=== PATIENT | female | born 1945 | race African-American/Black ===

== ENCOUNTER 2022-07-19 15:36 | Inpatient (IN) | payer MEDICARE, MEDICAID ==
[~2022-07-19] VITALS: Ht 162.6 cm; Wt 69.9 kg
[~2022-07-19 15:36] MED LIST: ALBU18HF2 IH; FLUT1DIS3 INH; LEVO-65 MT; P20 MT
[2022-07-19] MEDS ORDERED: ONDANSETRON HCL 4MG/2ML INJ IV STA (17:53)
[2022-07-19] MEDS ORDERED: MORPHINE SULFATE 4 MG/ML CPJ (NOT FOR IM USE) IV STA (17:53)
[2022-07-19] MEDS ORDERED: FUROSEMIDE 40MG/4ML VIAL IV ONE (18:00)
[2022-07-19 20:14] LABS: BASOPHILS % 0.4 % (0.0-2.0); EOSINOPHILS % 2.9 % (0.0-5.0); HEMATOCRIT. 32.6 % (36.0-48.0); HEMOGLOBIN. 10.4 g/dL (12.0-16.0); LYMPHOCYTES % 12.4 % (20.0-50.0); MEAN CORPUSCULAR HEMOGLOBIN 26.1 pg (28.0-32.0); MEAN CORPUSCULAR VOLUME 81.7 fL (81.0-99.0); MEAN PLATELET VOLUME 9.2 fl (7.4-10.4); MONOCYTES % 9.7 % (2.0-8.0); NEUTROPHILS % 74.6 % (40.0-76.0); PLATELET 270 x1000/uL (130-400); RED BLOOD CELL COUNT 3.99 mill/uL (4.2-5.4); RED CELL DISTRIBUTION WIDTH 17.1 % (11.6-14.6)
[2022-07-19 20:21] LABS: PARTIAL THROMBOPLASTIN TIME 25.7 sec (23.4-31.0); PROTHROMBIN TIME 10.4 sec (9.6-11.0)
[2022-07-19 20:23] LABS: CHLORIDE 100 mEq/L (98-107)
[2022-07-20 00:25] VITALS: BP 98/67
[2022-07-20] MEDS ORDERED: DEXTROSE 50% WATER 50ML SYRINGE IV PRN (02:15)
[2022-07-20] MEDS: ZOLPIDEM TARTRATE 5MG TABLET PO PRN ×2 (02:38→20:59)
[2022-07-20] MEDS: HYDROCODONE/ACETAMINOPHEN 5/325MG TABLET PO PRN ×4 (02:38→17:49)
[2022-07-20] MEDS: GUAIFENESIN-DM 200MG-20MG/10ML UDC PO PRN ×4 (02:39→17:48)
[2022-07-20 04:00] VITALS: BP 127/70
[2022-07-20] MEDS: BLOOD SUGAR DIAGNOSTIC STRIP TEST SCH ×4 (05:40→21:00)
[2022-07-20 08:00] VITALS: BP 110/70
[2022-07-20] MEDS: INSULIN LISPRO 100 UNITS/ML SUBCUT SCH ×4 (08:09→21:00)
[2022-07-20] MEDS: ASPIRIN 81MG TABLET PO SCH (08:10)
[2022-07-20] MEDS: ENOXAPARIN 40MG/0.4ML SYR SUBCUT SCH (08:10)
[2022-07-20 11:50] LABS: BASOPHILS % 0.5 % (0.0-2.0); EOSINOPHILS % 3.5 % (0.0-5.0); HEMATOCRIT. 31.7 % (36.0-48.0); HEMOGLOBIN. 10.3 g/dL (12.0-16.0); LYMPHOCYTES % 12.9 % (20.0-50.0); MEAN CORPUSCULAR HEMOGLOBIN 26.5 pg (28.0-32.0); MEAN CORPUSCULAR VOLUME 81.6 fL (81.0-99.0); MEAN PLATELET VOLUME 8.9 fl (7.4-10.4); MONOCYTES % 13.9 % (2.0-8.0); NEUTROPHILS % 69.2 % (40.0-76.0); PLATELET 250 x1000/uL (130-400); RED BLOOD CELL COUNT 3.89 mill/uL (4.2-5.4); RED CELL DISTRIBUTION WIDTH 17.1 % (11.6-14.6)
[2022-07-20 12:00] VITALS: BP 128/80
[2022-07-20 12:35] LABS: CHLORIDE 97 mEq/L (98-107)
[2022-07-20] MEDS: IPRATROPIUM/ALBUTEROL 0.5-3(2.5)MG/3ML NEB HHN SCH ×3 (12:38→21:12)
[2022-07-20 12:41] LABS: *AMPHETAMINES SCREEN URINE NEGATIVE (NEGATIVE); *BARBITURATES SCREEN URINE NEGATIVE (NEGATIVE); *BENZODIAZEPINES SCREEN URINE NEGATIVE (NEGATIVE); *COCAINE SCREEN URINE NEGATIVE (NEGATIVE); CANNABINOID URINE SCREEN NEGATIVE (NEGATIVE); METHADONE URINE SCREEN NEGATIVE (NEGATIVE); OPIATES URINE SCREEN PRESUMTIVE POSITIVE (NEGATIVE); PHENCYCLIDINE URINE SCREEN NEGATIVE (NEGATIVE)
[2022-07-20 12:48] LABS: CREATINE KINASE 29 IU/L (26-192); CREATINE KINASE MB FRACTION 2.1 ng/mL (0.5-3.6)
[2022-07-20] MEDS ORDERED: AZITHROMYCIN 500 MG in DEXT 5% WATER 250 ML IV SCH (13:00)
[2022-07-20 13:54] LABS: BG BASE EXCESS 4.6 mmol/L (-2.0-2.0); BG CARBOXYHEMOGLOBIN 0.3 % (0.5-1.5); BG DEOXYHEMOGLOBIN 12.4 % (0.0-5.0); BG HCO3 ACT 29.4 mmol/L (22.0-26.0); BG METHEMOGLOBIN 0.3 % (0.0-1.5); BG OXYGEN SATURATION 87.5 % (92.0-98.5); BG PCO2 44.9 mmHg (35.0-45.0); BG PH 7.434 (7.350-7.450); BG PO2 53.8 mmHg (75.0-100.0); BG SAMPLE SITE RIGHT BRACHIAL; BG TOTAL HEMOGLOBIN 10.5 g/dL (12.0-18.0); BG VENT MODE ROOM AIR
[2022-07-20] MEDS: AZITHROMYCIN 500 MG in DEXT 5% WATER 250 ML IV SCH (14:00)
[2022-07-20] MEDS: SPIRONOLACTONE 25MG TABLET PO SCH (14:13)
[2022-07-20] MEDS: CEFTRIAXONE 1,000 MG in DEXTROSE 5% WATER 50 ML IV SCH (14:35)
[2022-07-20 16:00] VITALS: BP 112/91
[2022-07-20] MEDS: ONDANSETRON HCL 4MG/2ML INJ IV PRN (16:24)
[2022-07-20] MEDS ORDERED: BENZONATATE 100MG CAPSULE PO PRN (18:00)
[2022-07-20] MEDS: METHYLPREDNISOLONE SOD SUCC 40 MG/ML VIAL IV SCH (18:31)
[2022-07-20 20:00] VITALS: BP 103/51
[2022-07-20] MEDS: LORAZEPAM 1MG TABLET PO PRN (20:59)
[2022-07-20 21:07] LABS: CREATINE KINASE MB FRACTION 2.2 ng/mL (0.5-3.6)
[2022-07-20] MEDS: BUDESONIDE 0.5MG/2ML NEB HHN SCH (21:12)
[2022-07-20] MEDS ORDERED: NALOXONE HCL 0.4MG/ML VIAL IV PRN (23:30)
[2022-07-21] VITALS: BP 105/54
[2022-07-21] MEDS: FLUTICASONE PROPIONATE 50MCG/SPRAY BOTTLE BOTHNSTRLS SCH ×3 (00:28→20:21)
[2022-07-21] MEDS: IPRATROPIUM/ALBUTEROL 0.5-3(2.5)MG/3ML NEB HHN SCH ×6 (00:31→21:06)
[2022-07-21] MEDS: METHYLPREDNISOLONE SOD SUCC 40 MG/ML VIAL IV SCH ×3 (02:09→18:00)
[2022-07-21 04:00] VITALS: BP 128/66
[2022-07-21] MEDS: BLOOD SUGAR DIAGNOSTIC STRIP TEST SCH ×4 (05:31→20:25)
[2022-07-21] MEDS: GUAIFENESIN-DM 200MG-20MG/10ML UDC PO PRN ×3 (05:32→20:49)
[2022-07-21] MEDS: LORAZEPAM 1MG TABLET PO PRN (05:32)
[2022-07-21] MEDS: INSULIN LISPRO 100 UNITS/ML SUBCUT SCH ×4 (05:32→20:27)
[2022-07-21 08:00] VITALS: BP 104/55
[2022-07-21] MEDS: BUDESONIDE 0.5MG/2ML NEB HHN SCH ×2 (08:51→21:06)
[2022-07-21] MEDS: ENOXAPARIN 40MG/0.4ML SYR SUBCUT SCH (09:02)
[2022-07-21] MEDS: ASPIRIN 81MG TABLET PO SCH (09:02)
[2022-07-21] MEDS: SPIRONOLACTONE 25MG TABLET PO SCH (09:02)
[2022-07-21] MEDS: HYDROCODONE/ACETAMINOPHEN 5/325MG TABLET PO PRN ×2 (09:08→16:15)
[2022-07-21] MEDS: FUROSEMIDE 40MG/4ML VIAL IVP SCH (09:32)
[2022-07-21] MEDS: DICLOFENAC SODIUM 1% GEL 50GM TOP SCH ×4 (09:45→20:18)
[2022-07-21 12:00] VITALS: BP 115/49
[2022-07-21] MEDS: CEFTRIAXONE 1,000 MG in DEXTROSE 5% WATER 50 ML IV SCH (13:17)
[2022-07-21] MEDS: GABAPENTIN 100MG CAPSULE PO SCH ×2 (14:17→20:18)
[2022-07-21] MEDS: AZITHROMYCIN 500 MG in DEXT 5% WATER 250 ML IV SCH (14:33)
[2022-07-21 16:00] VITALS: BP 156/116
[2022-07-21 20:00] VITALS: BP 106/79
[2022-07-21] MEDS: ZOLPIDEM TARTRATE 5MG TABLET PO PRN (20:18)
[2022-07-22] VITALS: BP 121/73
[2022-07-22] MEDS: IPRATROPIUM/ALBUTEROL 0.5-3(2.5)MG/3ML NEB HHN SCH ×6 (00:25→20:20)
[2022-07-22] MEDS: HYDROCODONE/ACETAMINOPHEN 5/325MG TABLET PO PRN ×4 (00:46→23:01)
[2022-07-22] MEDS: METHYLPREDNISOLONE SOD SUCC 40 MG/ML VIAL IV SCH ×3 (01:02→18:14)
[2022-07-22 04:00] VITALS: BP 121/52
[2022-07-22] MEDS: GUAIFENESIN-DM 200MG-20MG/10ML UDC PO PRN ×3 (04:22→22:59)
[2022-07-22] MEDS: GABAPENTIN 100MG CAPSULE PO SCH ×3 (05:11→21:39)
[2022-07-22] MEDS: BLOOD SUGAR DIAGNOSTIC STRIP TEST SCH ×4 (06:08→21:38)
[2022-07-22 07:05] LABS: HEMATOCRIT. 25.7 % (36.0-48.0); HEMOGLOBIN. 8.4 g/dL (12.0-16.0); MEAN CORPUSCULAR HEMOGLOBIN 26.6 pg (28.0-32.0); MEAN CORPUSCULAR VOLUME 81.2 fL (81.0-99.0); MEAN PLATELET VOLUME 9.3 fl (7.4-10.4); PLATELET 230 x1000/uL (130-400); RED BLOOD CELL COUNT 3.17 mill/uL (4.2-5.4); RED CELL DISTRIBUTION WIDTH 17.1 % (11.6-14.6)
[2022-07-22] MEDS: BUDESONIDE 0.5MG/2ML NEB HHN SCH ×2 (07:49→20:20)
[2022-07-22 08:00] VITALS: BP 141/55
[2022-07-22] MEDS: INSULIN LISPRO 100 UNITS/ML SUBCUT SCH ×4 (08:35→21:50)
[2022-07-22] MEDS: ENOXAPARIN 30MG/0.3ML SYR SUBCUT SCH (08:37)
[2022-07-22] MEDS: FUROSEMIDE 40MG/4ML VIAL IVP SCH (08:40)
[2022-07-22] MEDS: ASPIRIN 81MG TABLET PO SCH (08:41)
[2022-07-22] MEDS: SPIRONOLACTONE 25MG TABLET PO SCH (08:41)
[2022-07-22] MEDS: FLUTICASONE PROPIONATE 50MCG/SPRAY BOTTLE BOTHNSTRLS SCH ×2 (09:01→21:39)
[2022-07-22] MEDS: DICLOFENAC SODIUM 1% GEL 50GM TOP SCH ×4 (09:58→21:38)
[2022-07-22 11:58] VITALS: BP 116/75
[2022-07-22] MEDS: BENZONATATE 100MG CAPSULE PO SCH ×2 (13:05→21:38)
[2022-07-22] MEDS: CEFTRIAXONE 1,000 MG in DEXTROSE 5% WATER 50 ML IV SCH (15:00)
[2022-07-22 16:00] VITALS: BP 118/69
[2022-07-22] MEDS: AZITHROMYCIN 500 MG in DEXT 5% WATER 250 ML IV SCH (16:00)
[2022-07-22] MEDS: ONDANSETRON HCL 4MG/2ML INJ IV PRN (18:14)
[2022-07-22 20:00] VITALS: BP 112/54
[2022-07-22 21:33] LABS: PLATELET ESTIMATE NORMAL
[2022-07-22] MEDS: ZOLPIDEM TARTRATE 5MG TABLET PO PRN (21:38)
[2022-07-23] VITALS: BP 127/79
[2022-07-23] MEDS: IPRATROPIUM/ALBUTEROL 0.5-3(2.5)MG/3ML NEB HHN SCH ×8 (00:10→23:37)
[2022-07-23] MEDS: METHYLPREDNISOLONE SOD SUCC 40 MG/ML VIAL IV SCH ×3 (01:08→16:58)
[2022-07-23] MEDS: BENZONATATE 100MG CAPSULE PO SCH ×3 (03:10→21:08)
[2022-07-23] MEDS: HYDROCODONE/ACETAMINOPHEN 5/325MG TABLET PO PRN ×3 (03:10→21:52)
[2022-07-23 04:00] VITALS: BP 113/57
[2022-07-23] MEDS: GUAIFENESIN-DM 200MG-20MG/10ML UDC PO PRN ×2 (04:59→09:53)
[2022-07-23] MEDS: GABAPENTIN 100MG CAPSULE PO SCH ×3 (05:00→21:09)
[2022-07-23] MEDS: BLOOD SUGAR DIAGNOSTIC STRIP TEST SCH ×4 (06:07→21:09)
[2022-07-23 06:45] LABS: HEMATOCRIT. 25.1 % (36.0-48.0); HEMOGLOBIN. 8.3 g/dL (12.0-16.0); MEAN CORPUSCULAR HEMOGLOBIN 26.6 pg (28.0-32.0); MEAN CORPUSCULAR VOLUME 80.8 fL (81.0-99.0); MEAN PLATELET VOLUME 9.1 fl (7.4-10.4); PLATELET 237 x1000/uL (130-400); RED BLOOD CELL COUNT 3.11 mill/uL (4.2-5.4); RED CELL DISTRIBUTION WIDTH 16.7 % (11.6-14.6)
[2022-07-23 08:00] VITALS: BP 124/64
[2022-07-23] MEDS: ENOXAPARIN 30MG/0.3ML SYR SUBCUT SCH (08:41)
[2022-07-23] MEDS: ASPIRIN 81MG TABLET PO SCH (08:41)
[2022-07-23] MEDS: SPIRONOLACTONE 25MG TABLET PO SCH (08:43)
[2022-07-23] MEDS: FUROSEMIDE 40MG/4ML VIAL IVP SCH (08:44)
[2022-07-23] MEDS: INSULIN LISPRO 100 UNITS/ML SUBCUT SCH ×3 (08:47→21:10)
[2022-07-23] MEDS: DICLOFENAC SODIUM 1% GEL 50GM TOP SCH ×4 (09:38→21:09)
[2022-07-23] MEDS: INSULIN GLARGINE 100 UNITS/ML SUBCUT SCH ×2 (10:00→21:10)
[2022-07-23] MEDS ORDERED: ACETAMINOPHEN 650MG/20.3ML UDC PO PRN (10:00)
[2022-07-23 12:00] VITALS: BP 118/45
[2022-07-23] MEDS: BUDESONIDE 0.5MG/2ML NEB HHN SCH ×2 (12:11→23:37)
[2022-07-23] MEDS: GUAIFENESIN 600MG ER TABLET PO SCH ×2 (13:36→21:08)
[2022-07-23 14:06] LABS: PLATELET ESTIMATE NORMAL
[2022-07-23] MEDS: AZITHROMYCIN 500 MG in DEXT 5% WATER 250 ML IV SCH (15:02)
[2022-07-23] MEDS: CEFTRIAXONE 1,000 MG in DEXTROSE 5% WATER 50 ML IV SCH (15:02)
[2022-07-23 16:00] VITALS: BP 130/56
[2022-07-23] MEDS ORDERED: HYDROXYZINE 10 MG TABLET PO PRN (16:45)
[2022-07-23] MEDS: ONDANSETRON HCL 4MG/2ML INJ IV PRN (16:58)
[2022-07-23] MEDS: FLUTICASONE PROPIONATE 50MCG/SPRAY BOTTLE BOTHNSTRLS SCH ×2 (17:00→21:09)
[2022-07-23 20:00] VITALS: BP 132/53
[2022-07-24] VITALS: BP 109/61
[2022-07-24] MEDS: METHYLPREDNISOLONE SOD SUCC 40 MG/ML VIAL IV SCH ×3 (01:14→18:37)
[2022-07-24] MEDS: IPRATROPIUM/ALBUTEROL 0.5-3(2.5)MG/3ML NEB HHN SCH ×6 (03:40→23:53)
[2022-07-24 04:00] VITALS: BP 133/68
[2022-07-24] MEDS: GABAPENTIN 100MG CAPSULE PO SCH ×3 (04:56→22:49)
[2022-07-24] MEDS: BENZONATATE 100MG CAPSULE PO SCH ×3 (04:56→20:00)
[2022-07-24] MEDS: HYDROCODONE/ACETAMINOPHEN 5/325MG TABLET PO PRN ×3 (05:43→22:49)
[2022-07-24 08:00] VITALS: BP 128/48
[2022-07-24] MEDS: BLOOD SUGAR DIAGNOSTIC STRIP TEST SCH ×4 (08:10→21:00)
[2022-07-24] MEDS: GUAIFENESIN-DM 200MG-20MG/10ML UDC PO PRN (08:11)
[2022-07-24] MEDS: SPIRONOLACTONE 25MG TABLET PO SCH (08:11)
[2022-07-24] MEDS: ASPIRIN 81MG TABLET PO SCH (08:11)
[2022-07-24] MEDS: ENOXAPARIN 30MG/0.3ML SYR SUBCUT SCH (08:11)
[2022-07-24] MEDS: FUROSEMIDE 40MG TABLET PO SCH (08:11)
[2022-07-24] MEDS: INSULIN LISPRO 100 UNITS/ML SUBCUT SCH ×4 (08:13→22:52)
[2022-07-24] MEDS: DICLOFENAC SODIUM 1% GEL 50GM TOP SCH ×4 (08:16→22:55)
[2022-07-24] MEDS: FLUTICASONE PROPIONATE 50MCG/SPRAY BOTTLE BOTHNSTRLS SCH ×2 (08:16→22:55)
[2022-07-24] MEDS: GUAIFENESIN 600MG ER TABLET PO SCH ×2 (08:54→21:00)
[2022-07-24] MEDS: INSULIN GLARGINE 100 UNITS/ML SUBCUT SCH ×2 (10:43→22:51)
[2022-07-24 12:00] VITALS: BP 118/43
[2022-07-24] MEDS: CEFTRIAXONE 1,000 MG in DEXTROSE 5% WATER 50 ML IV SCH (12:19)
[2022-07-24] MEDS: ONDANSETRON HCL 4MG/2ML INJ IV PRN (13:13)
[2022-07-24] MEDS: AZITHROMYCIN 500 MG in DEXT 5% WATER 250 ML IV SCH (15:19)
[2022-07-24 16:00] VITALS: BP 139/71
[2022-07-24] MEDS: NYSTATIN 100,000 UNITS/ML 5ML UDC SSW SCH (18:59)
[2022-07-24 20:00] VITALS: BP 134/59
[2022-07-25] MEDS: NYSTATIN 100,000 UNITS/ML 5ML UDC SSW SCH ×4 (00:04→19:48)
[2022-07-25 00:33] VITALS: BP 126/54
[2022-07-25] MEDS: METHYLPREDNISOLONE SOD SUCC 40 MG/ML VIAL IV SCH ×3 (02:25→19:48)
[2022-07-25 04:00] VITALS: BP 105/45
[2022-07-25] MEDS: BENZONATATE 100MG CAPSULE PO SCH ×3 (04:48→22:01)
[2022-07-25 07:18] LABS: HEMATOCRIT. 25.9 % (36.0-48.0); HEMOGLOBIN. 8.5 g/dL (12.0-16.0); MEAN CORPUSCULAR HEMOGLOBIN 26.7 pg (28.0-32.0); MEAN CORPUSCULAR VOLUME 81.2 fL (81.0-99.0); MEAN PLATELET VOLUME 8.9 fl (7.4-10.4); PLATELET 228 x1000/uL (130-400); RED BLOOD CELL COUNT 3.19 mill/uL (4.2-5.4)
[2022-07-25] MEDS: BLOOD SUGAR DIAGNOSTIC STRIP TEST SCH ×4 (07:25→21:00)
[2022-07-25] MEDS: GABAPENTIN 100MG CAPSULE PO SCH ×3 (07:25→22:01)
[2022-07-25] MEDS: INSULIN LISPRO 100 UNITS/ML SUBCUT SCH ×4 (07:48→22:06)
[2022-07-25 08:00] VITALS: BP 129/65
[2022-07-25] MEDS: IPRATROPIUM/ALBUTEROL 0.5-3(2.5)MG/3ML NEB HHN SCH ×4 (08:26→21:10)
[2022-07-25] MEDS: SPIRONOLACTONE 25MG TABLET PO SCH (09:00)
[2022-07-25] MEDS: GUAIFENESIN 600MG ER TABLET PO SCH ×2 (09:28→22:01)
[2022-07-25] MEDS: ENOXAPARIN 30MG/0.3ML SYR SUBCUT SCH (09:28)
[2022-07-25] MEDS: DICLOFENAC SODIUM 1% GEL 50GM TOP SCH ×4 (09:29→22:02)
[2022-07-25] MEDS: ASPIRIN 81MG TABLET PO SCH (09:29)
[2022-07-25] MEDS: FUROSEMIDE 40MG TABLET PO SCH (09:29)
[2022-07-25] MEDS: FLUTICASONE PROPIONATE 50MCG/SPRAY BOTTLE BOTHNSTRLS SCH ×2 (09:30→22:02)
[2022-07-25] MEDS ORDERED: ALLO100T PO (09:44)
[2022-07-25] MEDS ORDERED: ATOR20TA65 PO (09:45)
[2022-07-25] MEDS ORDERED: DILT60TA35 PO (09:50)
[2022-07-25] MEDS ORDERED: DOCU100T PO (09:52)
[2022-07-25] MEDS ORDERED: FAMO20TA8 PO (09:53)
[2022-07-25] MEDS ORDERED: FURO40TA5 PO (09:55)
[2022-07-25] MEDS ORDERED: FERR325T6 PO (09:55)
[2022-07-25] MEDS ORDERED: GABA-532 PO (09:56)
[2022-07-25] MEDS ORDERED: HYDR-4001 PO (09:58)
[2022-07-25] MEDS ORDERED: HYDR-459 PO (09:59)
[2022-07-25] MEDS ORDERED: LEVE10006 PO (10:23)
[2022-07-25] MEDS ORDERED: LOSA50TA41 PO (10:24)
[2022-07-25] MEDS ORDERED: MEMA5TAB42 PO (10:25)
[2022-07-25] MEDS ORDERED: MONT-39 PO (10:26)
[2022-07-25] MEDS ORDERED: ONDA4TAB50 PO (10:41)
[2022-07-25] MEDS ORDERED: NAPR500T7 PO (10:42)
[2022-07-25] MEDS ORDERED: NALOXONE HCL 0.4MG/ML VIAL IV PRN (11:45)
[2022-07-25 12:00] VITALS: BP 121/77
[2022-07-25] MEDS: HYDROCODONE/ACETAMINOPHEN 5/325MG TABLET PO PRN (12:26)
[2022-07-25] MEDS: INSULIN GLARGINE 100 UNITS/ML SUBCUT SCH ×2 (14:14→22:07)
[2022-07-25] MEDS: CEFTRIAXONE 1,000 MG in DEXTROSE 5% WATER 50 ML IV SCH (14:17)
[2022-07-25] MEDS: DOCUSATE SODIUM 100MG CAPSULE PO PRN (14:55)
[2022-07-25 15:49] LABS: PLATELET ESTIMATE NORMAL
[2022-07-25 16:00] VITALS: BP 121/77
[2022-07-25] MEDS ORDERED: MEDICATION NOT ON FORMULARY EA (Levetiracetam 1,000 MG) PO SCH (17:00)
[2022-07-25] MEDS: ONDANSETRON HCL 4MG/2ML INJ IV PRN (17:51)
[2022-07-25] MEDS: LEVETIRACETAM 500MG TABLET PO SCH (19:48)
[2022-07-25 20:00] VITALS: BP_SYST 101; BP_SYST 117; BP_DIAS 45; BP_DIAS 66
[2022-07-25] MEDS: FAMOTIDINE 20MG TABLET PO SCH (22:01)
[2022-07-26] VITALS: BP 115/60
[2022-07-26] MEDS: IPRATROPIUM/ALBUTEROL 0.5-3(2.5)MG/3ML NEB HHN SCH ×6 (00:22→19:32)
[2022-07-26] MEDS: HYDROCODONE/ACETAMINOPHEN 5/325MG TABLET PO PRN (01:58)
[2022-07-26] MEDS: METHYLPREDNISOLONE SOD SUCC 40 MG/ML VIAL IV SCH ×3 (01:59→17:36)
[2022-07-26 04:00] VITALS: BP 109/56
[2022-07-26] MEDS: BLOOD SUGAR DIAGNOSTIC STRIP TEST SCH ×4 (05:35→21:00)
[2022-07-26] MEDS: GABAPENTIN 100MG CAPSULE PO SCH ×3 (05:35→21:18)
[2022-07-26] MEDS: LEVETIRACETAM 500MG TABLET PO SCH ×2 (05:35→17:36)
[2022-07-26] MEDS: NYSTATIN 100,000 UNITS/ML 5ML UDC SSW SCH ×4 (05:35→17:36)
[2022-07-26] MEDS: BENZONATATE 100MG CAPSULE PO SCH ×3 (05:35→21:18)
[2022-07-26] MEDS: GUAIFENESIN-DM 200MG-20MG/10ML UDC PO PRN ×2 (06:56→21:18)
[2022-07-26] MEDS: INSULIN LISPRO 100 UNITS/ML SUBCUT SCH ×4 (06:57→21:29)
[2022-07-26 08:00] VITALS: BP_SYST 87
[2022-07-26] MEDS: ASPIRIN 81MG TABLET PO SCH (08:44)
[2022-07-26] MEDS: DILTIAZEM HCL 60MG TABLET PO SCH ×2 (08:44→21:19)
[2022-07-26] MEDS: ENOXAPARIN 30MG/0.3ML SYR SUBCUT SCH (08:45)
[2022-07-26] MEDS: SPIRONOLACTONE 25MG TABLET PO SCH (08:45)
[2022-07-26] MEDS: FUROSEMIDE 40MG TABLET PO SCH (08:45)
[2022-07-26] MEDS: ATORVASTATIN CALCIUM 20MG TABLET PO SCH (08:45)
[2022-07-26] MEDS: ALLOPURINOL 100 MG TABLET PO SCH (08:48)
[2022-07-26] MEDS: GUAIFENESIN 600MG ER TABLET PO SCH ×2 (08:48→21:20)
[2022-07-26] MEDS: FLUTICASONE PROPIONATE 50MCG/SPRAY BOTTLE BOTHNSTRLS SCH (08:59)
[2022-07-26] MEDS: DICLOFENAC SODIUM 1% GEL 50GM TOP SCH ×3 (08:59→17:37)
[2022-07-26] MEDS: INSULIN GLARGINE 100 UNITS/ML SUBCUT SCH ×2 (10:35→21:27)
[2022-07-26 12:00] VITALS: BP 120/54
[2022-07-26 16:00] VITALS: BP 111/69
[2022-07-26] MEDS: DOCUSATE SODIUM 100MG CAPSULE PO PRN (17:42)
[2022-07-26 20:00] VITALS: BP 115/54
[2022-07-26] MEDS: ONDANSETRON HCL 4MG/2ML INJ IV PRN (21:19)
[2022-07-26] MEDS: FAMOTIDINE 20MG TABLET PO SCH (21:20)
[2022-07-27] VITALS: BP 104/50
[2022-07-27] MEDS: IPRATROPIUM/ALBUTEROL 0.5-3(2.5)MG/3ML NEB HHN SCH ×6 (00:28→20:22)
[2022-07-27] MEDS: NYSTATIN 100,000 UNITS/ML 5ML UDC SSW SCH ×4 (00:42→17:54)
[2022-07-27] MEDS: HYDROCODONE/ACETAMINOPHEN 5/325MG TABLET PO PRN ×2 (01:11→15:15)
[2022-07-27] MEDS: METHYLPREDNISOLONE SOD SUCC 40 MG/ML VIAL IV SCH ×3 (01:38→17:53)
[2022-07-27] MEDS: DICLOFENAC SODIUM 1% GEL 50GM TOP SCH ×5 (01:42→21:53)
[2022-07-27 04:00] VITALS: BP 122/48
[2022-07-27] MEDS: LEVETIRACETAM 500MG TABLET PO SCH ×2 (05:17→17:53)
[2022-07-27] MEDS: GABAPENTIN 100MG CAPSULE PO SCH ×3 (05:18→21:44)
[2022-07-27] MEDS: BENZONATATE 100MG CAPSULE PO SCH ×3 (05:18→21:43)
[2022-07-27] MEDS: BLOOD SUGAR DIAGNOSTIC STRIP TEST SCH ×4 (07:40→21:50)
[2022-07-27 08:00] VITALS: BP 119/71
[2022-07-27] MEDS ORDERED: LORAZEPAM 0.5MG TABLET PO PRN (08:45)
[2022-07-27] MEDS: ASPIRIN 81MG TABLET PO SCH (09:11)
[2022-07-27] MEDS: ENOXAPARIN 30MG/0.3ML SYR SUBCUT SCH (09:11)
[2022-07-27] MEDS: GUAIFENESIN 600MG ER TABLET PO SCH ×2 (09:12→21:43)
[2022-07-27] MEDS: ALLOPURINOL 100 MG TABLET PO SCH (09:12)
[2022-07-27] MEDS: FUROSEMIDE 40MG TABLET PO SCH (09:12)
[2022-07-27] MEDS: ATORVASTATIN CALCIUM 20MG TABLET PO SCH (09:12)
[2022-07-27] MEDS: SPIRONOLACTONE 25MG TABLET PO SCH (09:12)
[2022-07-27] MEDS: GUAIFENESIN-DM 200MG-20MG/10ML UDC PO PRN ×2 (09:13→15:15)
[2022-07-27] MEDS: DILTIAZEM HCL 60MG TABLET PO SCH ×2 (09:13→21:43)
[2022-07-27] MEDS: INSULIN LISPRO 100 UNITS/ML SUBCUT SCH ×4 (09:14→22:00)
[2022-07-27 12:00] VITALS: BP 124/62
[2022-07-27] MEDS ORDERED: GABA-529 PO (12:10)
[2022-07-27] MEDS ORDERED: P20 MT (12:10)
[2022-07-27] MEDS ORDERED: BENZ100C86 PO (12:10)
[2022-07-27] MEDS ORDERED: NYST60PO2 SSW (12:10)
[2022-07-27] MEDS ORDERED: ASPI-1160 PO (12:10)
[2022-07-27] MEDS ORDERED: DICL100G31 TP (12:10)
[2022-07-27] MEDS ORDERED: SPIR25TA PO (12:10)
[2022-07-27] MEDS ORDERED: TUSSL PO (12:10)
[2022-07-27] MEDS: LACTULOSE 20G/30ML UDC PO SCH ×3 (12:25→21:43)
[2022-07-27] MEDS: INSULIN GLARGINE 100 UNITS/ML SUBCUT SCH ×2 (12:27→21:59)
[2022-07-27 16:00] VITALS: BP 110/52
[2022-07-27] MEDS: DOCUSATE SODIUM 100MG CAPSULE PO SCH (17:53)
[2022-07-27 20:00] VITALS: BP 150/72
[2022-07-27] MEDS: FAMOTIDINE 20MG TABLET PO SCH (21:43)
[2022-07-28] VITALS: BP 121/61
[2022-07-28] MEDS: IPRATROPIUM/ALBUTEROL 0.5-3(2.5)MG/3ML NEB HHN SCH ×4 (00:19→12:50)
[2022-07-28] MEDS: NYSTATIN 100,000 UNITS/ML 5ML UDC SSW SCH ×3 (00:54→12:27)
[2022-07-28] MEDS: GUAIFENESIN-DM 200MG-20MG/10ML UDC PO PRN (00:55)
[2022-07-28] MEDS: METHYLPREDNISOLONE SOD SUCC 40 MG/ML VIAL IV SCH (01:00)
[2022-07-28] MEDS: BENZONATATE 100MG CAPSULE PO SCH ×2 (03:16→12:27)
[2022-07-28] MEDS: ONDANSETRON HCL 4MG/2ML INJ IV PRN ×2 (03:16→09:46)
[2022-07-28 04:00] VITALS: BP 124/62
[2022-07-28] MEDS: GABAPENTIN 400MG CAPSULE PO SCH ×2 (05:28→14:18)
[2022-07-28] MEDS: LEVETIRACETAM 500MG TABLET PO SCH (05:29)
[2022-07-28] MEDS: BLOOD SUGAR DIAGNOSTIC STRIP TEST SCH ×2 (06:34→12:26)
[2022-07-28] MEDS: INSULIN LISPRO 100 UNITS/ML SUBCUT SCH ×2 (06:34→12:27)
[2022-07-28 08:00] VITALS: BP 99/68
[2022-07-28] MEDS: SPIRONOLACTONE 25MG TABLET PO SCH (08:19)
[2022-07-28] MEDS: ENOXAPARIN 30MG/0.3ML SYR SUBCUT SCH (08:19)
[2022-07-28] MEDS: DILTIAZEM HCL 60MG TABLET PO SCH (08:20)
[2022-07-28] MEDS: ASPIRIN 81MG TABLET PO SCH (08:20)
[2022-07-28] MEDS: DOCUSATE SODIUM 100MG CAPSULE PO SCH (08:20)
[2022-07-28] MEDS: FUROSEMIDE 40MG TABLET PO SCH (08:21)
[2022-07-28] MEDS: ALLOPURINOL 100 MG TABLET PO SCH (08:21)
[2022-07-28] MEDS: ATORVASTATIN CALCIUM 20MG TABLET PO SCH (08:21)
[2022-07-28] MEDS: GUAIFENESIN 600MG ER TABLET PO SCH (08:21)
[2022-07-28] MEDS: INSULIN GLARGINE 100 UNITS/ML SUBCUT SCH (08:23)
[2022-07-28] MEDS: DICLOFENAC SODIUM 1% GEL 50GM TOP SCH ×2 (09:00→12:29)
[2022-07-28] MEDS ORDERED: HYDROCODONE/ACETAMINOPHEN 5/325MG TABLET PO SCH (09:00)
[2022-07-28] MEDS ORDERED: POLYETHYLENE GLYCOL 3350 (17GM) 1 DOSE PACK PO SCH (09:00)
[2022-07-28 12:00] VITALS: BP 102/75
[2022-07-28 12:06] VITALS: BP 102/75
[2022-07-28 16:00] VITALS: BP 144/77
[2022-07-28] MEDS ORDERED: PREDNISONE 20MG TABLET PO SCH (17:00)
== END 2022-07-28 16:05 | disposition home health service (06) | DRG 291 ==
LOC: ER 15:36 → EDBEDREQTM 21:54 → EDBEDREQ 21:54 → ENRESERV 22:45 → 7WST 07-20 01:11
PROVIDERS: ADMIT Internal Medicine; ATTEND Internal Medicine
DX: I11.0 Hypertensive heart disease with heart failure (principal); I50.33 Acute on chronic diastolic (congestive) heart failure; J96.21 Acute and chronic respiratory failure with hypoxia; J44.1 Chronic obstructive pulmonary disease with (acute) exacerbation; I25.10 Atherosclerotic heart disease of native coronary artery without angina pectoris; Z20.822 Contact with and (suspected) exposure to COVID-19; D64.9 Anemia, unspecified; E11.40 Type 2 diabetes mellitus with diabetic neuropathy, unspecified; E78.00 Pure hypercholesterolemia, unspecified; J40 Bronchitis, not specified as acute or chronic; R13.11 Dysphagia, oral phase; G89.4 Chronic pain syndrome; D72.821 Monocytosis (symptomatic); R26.9 Unspecified abnormalities of gait and mobility; M19.90 Unspecified osteoarthritis, unspecified site; Z83.3 Family history of diabetes mellitus; Z95.0 Presence of cardiac pacemaker; Z82.49 Family history of ischemic heart disease and other diseases of the circulatory system; Z86.73 Personal history of transient ischemic attack (TIA), and cerebral infarction without residual deficits; I25.2 Old myocardial infarction; Z79.51 Long term (current) use of inhaled steroids
CPT/HCPCS: 36415; 36600; 71045; 80048; 80053; 80305; 82375; 82550; 82553; 82805; 82962; 83036; 83735; 83880; 84484; 85025; 87426; 93005; 93306; 93970; 94640; 97162; 97166; 99285; C1893; J0456; J0696; J1650; J1815; J1940; J2270; J2405; J2920; J7060; J7626; A4315

== ENCOUNTER 2022-08-31 10:39 | Inpatient (IN) | payer OTHER, MEDICAID ==
[~2022-08-31] VITALS: Ht 149.9 cm; Wt 75.7 kg
[~2022-08-31 10:39] MED LIST changes: +ALLO100T PO; +ASPI-1160 PO; +ATOR20TA65 PO; +BENZ100C86 PO; +DICL100G31 TP; +DILT60TA35 PO; +DOCU100T PO; +FAMO20TA8 PO; +FERR325T6 PO; +FURO40TA5 PO; +GABA-529 PO; +HYDR-4001 PO; +HYDR-459 PO; +LEVE10006 PO; -LEVO-65 MT; +MEMA5TAB42 PO; +MONT-39 PO; +NYST60PO2 SSW; +ONDA4TAB50 PO; +SPIR25TA PO; +TUSSL PO
[2022-08-31] MEDS ORDERED: METHYLPREDNISOLONE SOD SUCC 125 MG/2 ML VIAL IV STA (12:24)
[2022-08-31] MEDS ORDERED: IPRATROPIUM BROMIDE (0.02%) 0.5MG/2.5ML NEB HHN STA (12:24)
[2022-08-31] MEDS ORDERED: ALBUTEROL (0.083%) 2.5MG/3ML NEB HHN STA (12:24)
[2022-08-31] MEDS ORDERED: ASPIRIN 81MG TABLET PO ONE (12:30)
[2022-08-31 12:54] LABS: HEMOGLOBIN. 10.8 g/dL (12.0-16.0); MEAN CORPUSCULAR HEMOGLOBIN 27.1 pg (28.0-32.0); MEAN CORPUSCULAR VOLUME 85.5 fL (81.0-99.0); MEAN PLATELET VOLUME 8.2 fl (7.4-10.4); PLATELET 354 x1000/uL (130-400); RED BLOOD CELL COUNT 3.98 mill/uL (4.2-5.4); RED CELL DISTRIBUTION WIDTH 19.2 % (11.6-14.6)
[2022-08-31 13:09] LABS: CHLORIDE 97 mEq/L (98-107)
[2022-08-31 13:34] LABS: PLATELET ESTIMATE NORMAL
[2022-08-31 13:45] LABS: BG BASE EXCESS 4.2 mmol/L (-2.0-2.0); BG CARBOXYHEMOGLOBIN 1.1 % (0.5-1.5); BG DEOXYHEMOGLOBIN 2.8 % (0.0-5.0); BG FRACTION INSPIRED OXYGEN 32; BG HCO3 ACT 29.1 mmol/L (22.0-26.0); BG METHEMOGLOBIN 0.1 % (0.0-1.5); BG OXYGEN SATURATION 97.2 % (92.0-98.5); BG PCO2 44.9 mmHg (35.0-45.0); BG PH 7.429 (7.350-7.450); BG PO2 92.7 mmHg (75.0-100.0); BG SAMPLE SITE RIGHT RADIAL; BG TOTAL HEMOGLOBIN 11.4 g/dL (12.0-18.0); BG VENT MODE NASAL CANNULA
[2022-08-31 14:21] LABS: CLARITY URINE CLEAR (CLEAR); COLOR URINE YELLOW (YELLOW); KETONES URINE NEGATIVE (NEGATIVE); LEUKOCYTE ESTERASE URINE NEGATIVE (NEGATIVE); NITRITE URINE NEGATIVE (NEGATIVE); OCCULT BLOOD URINE NEGATIVE (NEGATIVE); PH URINE 5.5 (4.5-8.0); PROTEIN URINE NEGATIVE (NEGATIVE); SPECIFIC GRAVITY URINE 1.011 (1.005-1.030); UROBILINOGEN URINE 0.2 E.U./dL (0.2-1.0)
[2022-08-31] MEDS ORDERED: FUROSEMIDE 40MG/4ML VIAL IVP NR (16:00)
[2022-08-31] MEDS ORDERED: IPRATROPIUM/ALBUTEROL 0.5-3(2.5)MG/3ML NEB HHN PRN (16:45)
[2022-08-31] MEDS ORDERED: METHYLPREDNISOLONE SOD SUCC 125 MG/2 ML VIAL IV NR (20:15)
[2022-08-31] MEDS ORDERED: ASPIRIN 81MG TABLET PO NR (20:15)
[2022-08-31] MEDS: IPRATROPIUM/ALBUTEROL 0.5-3(2.5)MG/3ML NEB HHN SCH (20:39)
[2022-09-01] MEDS: HYDROCODONE/ACETAMINOPHEN 5/325MG TABLET PO PRN ×3 (00:36→21:20)
[2022-09-01] MEDS: IPRATROPIUM/ALBUTEROL 0.5-3(2.5)MG/3ML NEB HHN SCH ×2 (02:22→21:16)
[2022-09-01] MEDS: NITROGLYCERIN 0.4MG TABLET SL SL PRN ×2 (04:58→07:05)
[2022-09-01 06:20] LABS: HEMATOCRIT. 32.4 % (36.0-48.0); HEMOGLOBIN. 10.4 g/dL (12.0-16.0); MEAN CORPUSCULAR HEMOGLOBIN 27.5 pg (28.0-32.0); MEAN CORPUSCULAR VOLUME 85.8 fL (81.0-99.0); MEAN PLATELET VOLUME 8.9 fl (7.4-10.4); PLATELET 344 x1000/uL (130-400); RED BLOOD CELL COUNT 3.78 mill/uL (4.2-5.4); RED CELL DISTRIBUTION WIDTH 19.3 % (11.6-14.6)
[2022-09-01 07:59] LABS: PLATELET ESTIMATE NORMAL
[2022-09-01] MEDS: AMLODIPINE 5MG TABLET PO SCH (09:00)
[2022-09-01 09:48] LABS: *AMPHETAMINES SCREEN URINE NEGATIVE (NEGATIVE); *BARBITURATES SCREEN URINE NEGATIVE (NEGATIVE); *BENZODIAZEPINES SCREEN URINE NEGATIVE (NEGATIVE); *COCAINE SCREEN URINE NEGATIVE (NEGATIVE); CANNABINOID URINE SCREEN NEGATIVE (NEGATIVE); METHADONE URINE SCREEN NEGATIVE (NEGATIVE); OPIATES URINE SCREEN NEGATIVE (NEGATIVE); PHENCYCLIDINE URINE SCREEN NEGATIVE (NEGATIVE)
[2022-09-01] MEDS ORDERED: NALOXONE HCL 0.4MG/ML VIAL IV PRN (10:00)
[2022-09-01 10:41] VITALS: BP 111/52
[2022-09-01 10:55] VITALS: BP 111/52
[2022-09-01] MEDS ORDERED: ENOXAPARIN 40MG/0.4ML SYR SUBCUT SCH (11:45)
[2022-09-01 12:15] VITALS: BP 105/50
[2022-09-01] MEDS: ENOXAPARIN 30MG/0.3ML SYR SUBCUT SCH (12:21)
[2022-09-01] MEDS ORDERED: INFLUENZA VACCINE IM SCH (14:00)
[2022-09-01 14:30] LABS: BASOPHILS % 0.1 % (0.0-2.0); EOSINOPHILS % 0.1 % (0.0-5.0); HEMATOCRIT. 30.9 % (36.0-48.0); LYMPHOCYTES % 12.9 % (20.0-50.0); MEAN CORPUSCULAR HEMOGLOBIN 27.6 pg (28.0-32.0); MEAN CORPUSCULAR VOLUME 85.6 fL (81.0-99.0); MEAN PLATELET VOLUME 8.6 fl (7.4-10.4); MONOCYTES % 8.6 % (2.0-8.0); NEUTROPHILS % 78.3 % (40.0-76.0); PLATELET 319 x1000/uL (130-400); RED BLOOD CELL COUNT 3.61 mill/uL (4.2-5.4)
[2022-09-01 16:00] VITALS: BP 121/64
[2022-09-01] MEDS ORDERED: PREDNISONE 20MG TABLET PO SCH (18:00)
[2022-09-01] MEDS ORDERED: DEXTROSE 50% WATER 50ML SYRINGE IV PRN (19:00)
[2022-09-01 20:00] VITALS: BP 97/28
[2022-09-01 21:00] VITALS: BP 104/56
[2022-09-01] MEDS: INSULIN LISPRO 100 UNITS/ML SUBCUT SCH (21:00)
[2022-09-01] MEDS: OMEPRAZOLE 20MG CAPSULE EXTENDED RELEASE PO SCH (21:16)
[2022-09-01] MEDS: BUDESONIDE 0.5MG/2ML NEB HHN SCH (21:16)
[2022-09-01] MEDS: FUROSEMIDE 40MG/4ML VIAL IVP SCH (21:16)
[2022-09-01] MEDS: ALLOPURINOL 100 MG TABLET PO SCH (21:16)
[2022-09-01] MEDS: BLOOD SUGAR DIAGNOSTIC STRIP TEST SCH (21:20)
[2022-09-01] MEDS: DIPHENHYDRAMINE 50MG CAPSULE PO PRN (23:07)
[2022-09-01] MEDS: ACETAZOLAMIDE 250MG TABLET PO SCH (23:07)
[2022-09-02] VITALS: BP 96/42
[2022-09-02] MEDS: IPRATROPIUM/ALBUTEROL 0.5-3(2.5)MG/3ML NEB HHN SCH ×4 (02:52→20:35)
[2022-09-02 04:00] VITALS: BP 113/53
[2022-09-02] MEDS: HYDROCODONE/ACETAMINOPHEN 5/325MG TABLET PO PRN ×4 (04:52→22:56)
[2022-09-02] MEDS: INSULIN LISPRO 100 UNITS/ML SUBCUT SCH ×4 (06:02→20:42)
[2022-09-02] MEDS: BLOOD SUGAR DIAGNOSTIC STRIP TEST SCH ×4 (06:02→20:44)
[2022-09-02] MEDS: GABAPENTIN 400MG CAPSULE PO SCH ×3 (06:12→18:25)
[2022-09-02] MEDS: OMEPRAZOLE 20MG CAPSULE EXTENDED RELEASE PO SCH (06:12)
[2022-09-02 07:57] LABS: BASOPHILS % 0.4 % (0.0-2.0); EOSINOPHILS % 0.8 % (0.0-5.0); HEMATOCRIT. 31.3 % (36.0-48.0); LYMPHOCYTES % 21.4 % (20.0-50.0); MEAN CORPUSCULAR HEMOGLOBIN 27.7 pg (28.0-32.0); MEAN CORPUSCULAR VOLUME 86.6 fL (81.0-99.0); MEAN PLATELET VOLUME 8.6 fl (7.4-10.4); MONOCYTES % 7.1 % (2.0-8.0); NEUTROPHILS % 70.3 % (40.0-76.0); PLATELET 295 x1000/uL (130-400); RED BLOOD CELL COUNT 3.61 mill/uL (4.2-5.4); RED CELL DISTRIBUTION WIDTH 18.6 % (11.6-14.6)
[2022-09-02 08:00] VITALS: BP 135/72
[2022-09-02] MEDS: BUDESONIDE 0.5MG/2ML NEB HHN SCH ×2 (08:25→20:35)
[2022-09-02] MEDS: PREDNISONE 20MG TABLET PO SCH ×2 (09:00→09:09)
[2022-09-02] MEDS: ACETAZOLAMIDE 250MG TABLET PO SCH ×2 (09:01→20:40)
[2022-09-02] MEDS: ALLOPURINOL 100 MG TABLET PO SCH (09:01)
[2022-09-02] MEDS: ASPIRIN 81MG TABLET PO SCH (09:01)
[2022-09-02] MEDS: LEVETIRACETAM 500MG TABLET PO SCH ×2 (09:02→20:40)
[2022-09-02] MEDS: AMLODIPINE 5MG TABLET PO SCH (09:02)
[2022-09-02] MEDS: DILTIAZEM HCL 60MG TABLET PO SCH ×2 (09:02→20:40)
[2022-09-02] MEDS: FUROSEMIDE 40MG/4ML VIAL IVP SCH (09:03)
[2022-09-02] MEDS: ATORVASTATIN CALCIUM 20MG TABLET PO SCH (09:03)
[2022-09-02 10:18] LABS: BG BASE EXCESS 8.6 mmol/L (-2.0-2.0); BG CARBOXYHEMOGLOBIN 0.9 % (0.5-1.5); BG DEOXYHEMOGLOBIN 3.3 % (0.0-5.0); BG FRACTION INSPIRED OXYGEN 30; BG METHEMOGLOBIN 0.3 % (0.0-1.5); BG OXYGEN SATURATION 96.7 % (92.0-98.5); BG OXYHEMOGLOBIN 95.5 % (94.0-97.0); BG PCO2 50.8 mmHg (35.0-45.0); BG PH 7.443 (7.350-7.450); BG PO2 90.2 mmHg (75.0-100.0); BG SAMPLE SITE RIGHT BRACHIAL; BG TOTAL HEMOGLOBIN 11.3 g/dL (12.0-18.0); BG VENT MODE NASAL CANNULA
[2022-09-02 12:00] VITALS: BP_SYST 135; BP_SYST 93; BP_DIAS 56; BP_DIAS 72
[2022-09-02] MEDS: ENOXAPARIN 30MG/0.3ML SYR SUBCUT SCH (12:09)
[2022-09-02] MEDS ORDERED: POTASSIUM CHLORIDE 20MEQ TABLET SR PO SCH (13:00)
[2022-09-02] MEDS: METHYLPREDNISOLONE SOD SUCC 40 MG/ML VIAL IV SCH ×2 (13:44→20:46)
[2022-09-02 16:00] VITALS: BP 101/47
[2022-09-02] MEDS ORDERED: DEXTROSE 50% WATER 50ML SYRINGE IV PRN (16:45)
[2022-09-02] MEDS: TRAMADOL 50MG TABLET PO PRN ×2 (16:55→23:48)
[2022-09-02 20:00] VITALS: BP 107/70
[2022-09-03] VITALS (7 sets, daily range): BP systolic 101–184; BP diastolic 38–115
[2022-09-03] MEDS: IPRATROPIUM/ALBUTEROL 0.5-3(2.5)MG/3ML NEB HHN SCH ×4 (02:22→21:48)
[2022-09-03] MEDS: METHYLPREDNISOLONE SOD SUCC 40 MG/ML VIAL IV SCH ×3 (06:16→21:07)
[2022-09-03] MEDS: FAMOTIDINE 20MG TABLET PO SCH (06:17)
[2022-09-03] MEDS: BLOOD SUGAR DIAGNOSTIC STRIP TEST SCH ×4 (06:17→21:02)
[2022-09-03] MEDS: INSULIN LISPRO 100 UNITS/ML SUBCUT SCH ×4 (06:18→21:15)
[2022-09-03] MEDS: TRAMADOL 50MG TABLET PO PRN ×2 (06:50→12:42)
[2022-09-03] MEDS: BUDESONIDE 0.5MG/2ML NEB HHN SCH (07:54)
[2022-09-03] MEDS: ASPIRIN 81MG TABLET PO SCH (08:39)
[2022-09-03] MEDS: ATORVASTATIN CALCIUM 20MG TABLET PO SCH (08:39)
[2022-09-03] MEDS: GABAPENTIN 300MG CAPSULE PO SCH ×2 (08:40→17:33)
[2022-09-03] MEDS: AMLODIPINE 5MG TABLET PO SCH (08:40)
[2022-09-03] MEDS: LEVETIRACETAM 500MG TABLET PO SCH ×2 (08:40→21:08)
[2022-09-03] MEDS: ALLOPURINOL 100 MG TABLET PO SCH (08:40)
[2022-09-03] MEDS: DILTIAZEM HCL 60MG TABLET PO SCH ×2 (08:40→21:07)
[2022-09-03] MEDS: ACETAZOLAMIDE 250MG TABLET PO SCH (08:43)
[2022-09-03] MEDS: HYDROCODONE/ACETAMINOPHEN 5/325MG TABLET PO PRN (08:43)
[2022-09-03 09:01] LABS: BASOPHILS % 0.1 % (0.0-2.0); HEMATOCRIT. 29.8 % (36.0-48.0); HEMOGLOBIN. 9.7 g/dL (12.0-16.0); LYMPHOCYTES % 8.1 % (20.0-50.0); MEAN CORPUSCULAR HEMOGLOBIN 27.7 pg (28.0-32.0); MEAN CORPUSCULAR VOLUME 85.6 fL (81.0-99.0); MEAN PLATELET VOLUME 9.1 fl (7.4-10.4); MONOCYTES % 4.3 % (2.0-8.0); NEUTROPHILS % 87.5 % (40.0-76.0); PLATELET 309 x1000/uL (130-400); RED BLOOD CELL COUNT 3.49 mill/uL (4.2-5.4); RED CELL DISTRIBUTION WIDTH 18.1 % (11.6-14.6)
[2022-09-03] MEDS: ENOXAPARIN 30MG/0.3ML SYR SUBCUT SCH (12:36)
[2022-09-03] MEDS: SODIUM CHLORIDE 0.9% 1,000 ML IV SCH (12:37)
[2022-09-03] MEDS: GUAIFENESIN-DM 200MG-20MG/10ML UDC PO PRN ×2 (17:38→21:19)
[2022-09-03] MEDS: DIPHENHYDRAMINE 50MG CAPSULE PO PRN (19:37)
[2022-09-04] VITALS: BP 119/68
[2022-09-04] MEDS: BUDESONIDE 0.5MG/2ML NEB HHN SCH ×3 (02:55→20:39)
[2022-09-04] MEDS: IPRATROPIUM/ALBUTEROL 0.5-3(2.5)MG/3ML NEB HHN SCH ×4 (02:55→20:40)
[2022-09-04 04:00] VITALS: BP 113/56
[2022-09-04] MEDS: GUAIFENESIN-DM 200MG-20MG/10ML UDC PO PRN ×3 (06:23→21:32)
[2022-09-04] MEDS: METHYLPREDNISOLONE SOD SUCC 40 MG/ML VIAL IV SCH ×3 (06:23→21:32)
[2022-09-04] MEDS: DIPHENHYDRAMINE 50MG CAPSULE PO PRN ×2 (06:28→21:33)
[2022-09-04] MEDS: HYDROCODONE/ACETAMINOPHEN 5/325MG TABLET PO PRN (06:29)
[2022-09-04] MEDS: BLOOD SUGAR DIAGNOSTIC STRIP TEST SCH ×4 (06:46→21:32)
[2022-09-04] MEDS: FAMOTIDINE 20MG TABLET PO SCH (06:48)
[2022-09-04] MEDS: INSULIN LISPRO 100 UNITS/ML SUBCUT SCH ×4 (06:54→21:34)
[2022-09-04 07:13] LABS: HEMATOCRIT. 29.5 % (36.0-48.0); HEMOGLOBIN. 9.7 g/dL (12.0-16.0); MEAN CORPUSCULAR HEMOGLOBIN 27.8 pg (28.0-32.0); MEAN CORPUSCULAR VOLUME 84.9 fL (81.0-99.0); PLATELET 298 x1000/uL (130-400); RED BLOOD CELL COUNT 3.48 mill/uL (4.2-5.4)
[2022-09-04 08:00] VITALS: BP 109/52
[2022-09-04] MEDS: AMLODIPINE 5MG TABLET PO SCH (08:35)
[2022-09-04] MEDS: GABAPENTIN 300MG CAPSULE PO SCH ×2 (08:44→17:31)
[2022-09-04] MEDS: ALLOPURINOL 100 MG TABLET PO SCH (08:44)
[2022-09-04] MEDS: DILTIAZEM HCL 60MG TABLET PO SCH ×2 (08:44→21:33)
[2022-09-04] MEDS: ASPIRIN 81MG TABLET PO SCH (08:44)
[2022-09-04] MEDS: ATORVASTATIN CALCIUM 20MG TABLET PO SCH (08:44)
[2022-09-04] MEDS: LEVETIRACETAM 500MG TABLET PO SCH ×2 (08:44→21:33)
[2022-09-04] MEDS: SODIUM CHLORIDE 0.9% 1,000 ML IV SCH (08:44)
[2022-09-04] MEDS ORDERED: DIPHENHYDRAMINE 50MG/ML VIAL IV NR (10:30)
[2022-09-04] MEDS: DOCUSATE SODIUM 100MG CAPSULE PO PRN (11:00)
[2022-09-04 12:00] VITALS: BP 111/51
[2022-09-04] MEDS: ENOXAPARIN 30MG/0.3ML SYR SUBCUT SCH (12:44)
[2022-09-04] MEDS: TRAMADOL 50MG TABLET PO PRN (12:45)
[2022-09-04 14:24] LABS: PLATELET ESTIMATE NORMAL
[2022-09-04 15:58] VITALS: BP 154/47
[2022-09-04 20:00] VITALS: BP 121/70
[2022-09-05] VITALS: BP 114/47
[2022-09-05] MEDS: IPRATROPIUM/ALBUTEROL 0.5-3(2.5)MG/3ML NEB HHN SCH ×3 (01:43→13:43)
[2022-09-05 04:00] VITALS: BP 114/47
[2022-09-05] MEDS: SODIUM CHLORIDE 0.9% 1,000 ML IV SCH ×2 (06:03→23:41)
[2022-09-05] MEDS: METHYLPREDNISOLONE SOD SUCC 40 MG/ML VIAL IV SCH ×3 (06:03→20:43)
[2022-09-05] MEDS: BLOOD SUGAR DIAGNOSTIC STRIP TEST SCH ×4 (06:04→20:43)
[2022-09-05] MEDS: DOCUSATE SODIUM 100MG CAPSULE PO PRN ×2 (06:04→14:36)
[2022-09-05] MEDS: FAMOTIDINE 20MG TABLET PO SCH (06:04)
[2022-09-05] MEDS: INSULIN LISPRO 100 UNITS/ML SUBCUT SCH ×4 (06:05→20:43)
[2022-09-05] MEDS: GUAIFENESIN-DM 200MG-20MG/10ML UDC PO PRN ×3 (06:06→18:04)
[2022-09-05] MEDS: TRAMADOL 50MG TABLET PO PRN ×2 (06:32→14:36)
[2022-09-05 08:00] VITALS: BP 106/54
[2022-09-05] MEDS: BUDESONIDE 0.5MG/2ML NEB HHN SCH ×2 (08:23→20:30)
[2022-09-05] MEDS: AMLODIPINE 5MG TABLET PO SCH (08:29)
[2022-09-05] MEDS: LEVETIRACETAM 500MG TABLET PO SCH ×2 (08:30→20:39)
[2022-09-05] MEDS: DILTIAZEM HCL 60MG TABLET PO SCH ×2 (08:30→20:39)
[2022-09-05] MEDS: ALLOPURINOL 100 MG TABLET PO SCH (08:31)
[2022-09-05] MEDS: GABAPENTIN 300MG CAPSULE PO SCH ×2 (08:31→18:04)
[2022-09-05] MEDS: ATORVASTATIN CALCIUM 20MG TABLET PO SCH (08:31)
[2022-09-05] MEDS: ASPIRIN 81MG TABLET PO SCH (08:31)
[2022-09-05] MEDS: ONDANSETRON HCL 4MG/2ML INJ IV PRN ×2 (11:18→20:43)
[2022-09-05] MEDS: INSULIN GLARGINE 100 UNITS/ML SUBCUT SCH (11:23)
[2022-09-05 12:00] VITALS: BP 125/75
[2022-09-05] MEDS: ENOXAPARIN 30MG/0.3ML SYR SUBCUT SCH (13:07)
[2022-09-05 16:00] VITALS: BP 106/32
[2022-09-05 20:00] VITALS: BP 123/44
[2022-09-06] VITALS: BP 126/78
[2022-09-06] MEDS: IPRATROPIUM/ALBUTEROL 0.5-3(2.5)MG/3ML NEB HHN SCH ×2 (01:23→08:50)
[2022-09-06] MEDS: GUAIFENESIN-DM 200MG-20MG/10ML UDC PO PRN (02:54)
[2022-09-06] MEDS: TRAMADOL 50MG TABLET PO PRN (03:02)
[2022-09-06 04:00] VITALS: BP 116/52
[2022-09-06] MEDS: METHYLPREDNISOLONE SOD SUCC 40 MG/ML VIAL IV SCH ×2 (05:57→13:44)
[2022-09-06] MEDS: FAMOTIDINE 20MG TABLET PO SCH (05:57)
[2022-09-06] MEDS: BLOOD SUGAR DIAGNOSTIC STRIP TEST SCH ×2 (05:57→12:27)
[2022-09-06] MEDS: INSULIN LISPRO 100 UNITS/ML SUBCUT SCH ×2 (06:00→12:29)
[2022-09-06 07:32] LABS: HEMATOCRIT. 30.4 % (36.0-48.0); HEMOGLOBIN. 9.7 g/dL (12.0-16.0); MEAN CORPUSCULAR HEMOGLOBIN 27.6 pg (28.0-32.0); MEAN CORPUSCULAR VOLUME 86.3 fL (81.0-99.0); MEAN PLATELET VOLUME 9.1 fl (7.4-10.4); PLATELET 270 x1000/uL (130-400); RED BLOOD CELL COUNT 3.52 mill/uL (4.2-5.4); RED CELL DISTRIBUTION WIDTH 18.3 % (11.6-14.6)
[2022-09-06 08:00] VITALS: BP 141/64
[2022-09-06 08:00] LABS: VITAMIN B12 SERUM 705 pg/mL (211-911)
[2022-09-06] MEDS: BUDESONIDE 0.5MG/2ML NEB HHN SCH (08:50)
[2022-09-06] MEDS: ATORVASTATIN CALCIUM 20MG TABLET PO SCH (08:51)
[2022-09-06] MEDS: AMLODIPINE 5MG TABLET PO SCH (08:52)
[2022-09-06] MEDS: GABAPENTIN 300MG CAPSULE PO SCH (08:52)
[2022-09-06] MEDS: LEVETIRACETAM 500MG TABLET PO SCH (08:55)
[2022-09-06] MEDS: DILTIAZEM HCL 60MG TABLET PO SCH (08:57)
[2022-09-06] MEDS: ASPIRIN 81MG TABLET PO SCH (08:58)
[2022-09-06] MEDS: ALLOPURINOL 100 MG TABLET PO SCH (09:00)
[2022-09-06] MEDS: INSULIN GLARGINE 100 UNITS/ML SUBCUT SCH (09:08)
[2022-09-06 12:00] VITALS: BP 113/51
[2022-09-06] MEDS: ENOXAPARIN 30MG/0.3ML SYR SUBCUT SCH (12:27)
[2022-09-06 18:05] LABS: PLATELET ESTIMATE NORMAL
== END 2022-09-06 17:16 | disposition home or self-care (01) | DRG 189 ==
LOC: ER 11:13 → MICUSO 15:07 → 7EST 09-01 09:59
PROVIDERS: ADMIT Internal Medicine; ATTEND Internal Medicine
DX: J96.21 Acute and chronic respiratory failure with hypoxia (principal); I50.33 Acute on chronic diastolic (congestive) heart failure; J44.1 Chronic obstructive pulmonary disease with (acute) exacerbation; E87.3 Alkalosis; I11.0 Hypertensive heart disease with heart failure; D72.829 Elevated white blood cell count, unspecified; E78.00 Pure hypercholesterolemia, unspecified; E11.65 Type 2 diabetes mellitus with hyperglycemia; E11.42 Type 2 diabetes mellitus with diabetic polyneuropathy; M10.9 Gout, unspecified; M19.90 Unspecified osteoarthritis, unspecified site; I25.10 Atherosclerotic heart disease of native coronary artery without angina pectoris; I27.20 Pulmonary hypertension, unspecified; G40.909 Epilepsy, unspecified, not intractable, without status epilepticus; Z20.822 Contact with and (suspected) exposure to COVID-19; F43.10 Post-traumatic stress disorder, unspecified; E66.9 Obesity, unspecified; D64.9 Anemia, unspecified; Z95.0 Presence of cardiac pacemaker; Z99.81 Dependence on supplemental oxygen; Z86.73 Personal history of transient ischemic attack (TIA), and cerebral infarction without residual deficits; Z79.899 Other long term (current) drug therapy; Z79.891 Long term (current) use of opiate analgesic; Z91.410 Personal history of adult physical and sexual abuse; Z68.33 Body mass index [BMI] 33.0-33.9, adult
CPT/HCPCS: 36415; 36600; 71045; 80048; 80053; 80305; 81003; 82375; 82607; 82805; 82962; 83036; 83540; 83550; 83880; 84484; 85025; 87426; 87804; 90686; 93005; 94640; 99285; C9803; J1200; J1650; J1815; J1940; J2405; J2920; J2930; J7030; J7512; J7626; Q0163